=== PATIENT | male | born 1960 | race Asian ===

== ENCOUNTER → 2017-09-19 | Outpatient (CLI) | payer BC | LOC: BMCIMAGING 14:16 | PROVIDERS: ATTEND Podiatrist Foot & Ankle Surgery | DX: M25.771 Osteophyte, right ankle (principal); M79.671 Pain in right foot ==

== ENCOUNTER → 2017-09-25 | Outpatient (CLI) | payer BC | LOC: FIMAGING 13:33 | PROVIDERS: ATTEND Podiatrist Foot & Ankle Surgery | DX: M21.70 Unequal limb length (acquired), unspecified site (principal) ==

== ENCOUNTER → 2018-07-27 | Outpatient (CLI) | payer BC | LOC: BMCIMAGING 11:46 | PROVIDERS: ATTEND Family Medicine | DX: M25.561 Pain in right knee (principal) ==

== ENCOUNTER 2018-11-28 17:14 | Emergency (ER) | payer BC | END 2018-11-28 20:11 | disposition home or self-care (01) ==